=== PATIENT | male | born 1960 | race Caucasian/White ===

== ENCOUNTER 2024-10-01 00:11 | Emergency (ER) | payer MEDICARE ==
[2024-10-01 00:25] LABS: Hematocrit 38.6 % (40.1-51.0); Hemoglobin 12.5 g/dL (13.7-17.5); Mean Cell Volume 91.5 fL (79.0-92.2); Mean Corpuscular Hemoglobin 29.6 pg (25.7-32.2); Mean Corpuscular Hgb Concent. 32.4 g/dL (32.3-36.5); Mean Platelet Volume 9.7 fL (9.4-12.4); Platelet Count 485 x10^3/uL (163-337); Red Blood Count 4.22 x10^6/uL (4.63-6.08); White Blood Count 9.9 x10^3/uL (4.23-9.07)
--- NOTE | 2024-10-01 00:35 | XRAY ---
CLINICAL HISTORY: acute mental status change COMPARISON: None. TECHNIQUE: Multiple axial images are obtained from the skull base to the vertex without contrast. CT scan was performed according to ALARA (as low as reasonable achievable). FINDINGS: There is cerebral atrophy. No evidence of space occupying lesion, hemorrhage, edema, mass effect, midline shift, extra axial collection, or hydrocephalus is noted. Basal cisterns are symmetric and normal in size and configuration. There are scattered periventricular hypodensities as can be seen with chronic microvascular ischemic changes. The rousseau-white matter differentiation is preserved. Bilateral ethmoid and left maxillary sinusitis. Rest of paranasal sinuses and mastoid air cells are well aerated. Orbital contents are within normal limits. Bony structures are intact. Small subgaleal lipoma is noted involving left frontal region. IMPRESSION: 1. No evidence of acute intracranial abnormality is demonstrated. 2. Chronic microvascular ischemic changes. 3. Cerebral atrophy. Electronically Signed by: Xander Oliva MD. (10/01/2024 00:32:09 EDT)
[2024-10-01 00:44] LABS: BILIRUBIN,TOTAL 0.5 mg/dL (0.2-1.3); Calcium 10.3 mg/dL (8.4-10.2); Creatinine 1 1.29 mg/dL (0.66-1.25); EST GLOMERULAR FILTRATION RATE 61.5 ML/MIN; MAGNESIUM 1.5 mg/dL (1.6-2.3); Potassium 3.9 mmol/L (3.5-5.1); Total Protein 7.4 g/dL (6.3-8.2)
[2024-10-01 00:48] LABS: INR 1.01 (0.8-3.0); PTT 24.1 SECONDS (25.1-36.5)
[2024-10-01 00:53] LABS: Appearance Clear (Clear); Bacteria None Seen /HPF (None Seen); Bilirubin Negative (Negative); Blood Negative (Negative); Epithelial Cells None Seen /HPF (None Seen); Glucose, Urine Negative (Negative); Hyaline Casts NONE SEEN /LPF (0-2); Ketones Negative (Negative); Leukocyte Esterase Negative (Negative); Nitrite Negative (Negative); Ph 6.5 (4.6-8.0); Protein,Urine Dip Trace (Negative); RBC 0-2 /HPF (0-5); Specific Gravity <=1.005 (1.005-1.030); Urobilinogen 0.2 mg/dL (0.2); WBC 0-2 /HPF (0-5)
[2024-10-01 00:55] LABS: Eosinophil 3 % (0.8-7.0); Lymphocytes 58 % (21.8-53.1); Monocyte 9 % (5.3-12.2); Neutrophils 30 % (34.0-67.9); Total Cells Counted 100
[2024-10-01 00:57] LABS: Platelet Estimate INCREASED (NORMAL)
[2024-10-01 00:59] LABS: VBG BASE EXCESS -11.7 (-2.0-2.0); VBG CARBOXYHEMOGLOBIN 3.1 % T HGB (0.0-6.9); VBG HEMOGLOBIN 13.5; VBG pH 7.19 (7.32-7.42)
[2024-10-01] MEDS ORDERED: Sodium Chloride 0.9% 1000 ML 1,000 ML ONE ×2 (01:02→01:09)
[2024-10-01] MEDS: Sodium Chloride 0.9% 1000 ML 1,000 ML IV STA ×2 (01:04→02:55)
--- NOTE | 2024-10-01 02:06 | ERPHSYRPT ---
- History of Present Illness Source: family, EMS Exam Limitations: no limitations Patient Subjective Stated Complaint: patient spouse found him seizing in bed Triage Nursing Assessment: patient is able to open eyes at this time, has petechiaye around both eyes and a cyst on head Physician History: According to the they both went to bed his last seen normal was around 1030. She was in the other room and heard him yell. It was unintelligible. She said that when she came in she found him laying in the bed having what is described like seizure activity. She said it lasted about a minute. It then stopped. She said that the patient turned blue and was frothing from the mouth. She called 911 and continue to monitor him. EMS arrived shortly thereafter and picked him up. They loaded him in the truck and they said that he had another seizure on the way in. He does not have a seizure disorder. There is been no acute changes in lifestyle or medications. He has been sleeping fine he has not ingested any alcohol or toxins. They have just been having a normal night and then this happened. Patient was not responsive when he got here and was unable to give me any history. Hx Tetanus, Diphtheria Vaccination/Date Given: Yes Hx Influenza Vaccination/Date Given: No Hx Pneumococcal Vaccination/Date Given: No Immunizations Up to Date: Yes Travel Risk - International Travel Have you traveled outside of the country in past 3 weeks: No - Emerging Infectious Disease Are you exhibiting symptoms associated with any current EIDs: No - Review of Systems All Other Systems: Unable due to condition - Past Medical History Pertinent Past Medical History: Yes Cardiac History: Hypertension Endocrine Medical History: Diabetes Type II Musculoskeletal History: No Pertinent History GI Medical History: No Pertinent History History: No Pertinent History Psycho-Social History: No Pertinent History 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 - Past Surgical History Past Surgical History: Yes Cardiac: Cardiac Stent - Social History Smoking Status: Never smoker Drug Use: none - Social Determinants of Health Will the patient participate in the screening: Declined to provide - Nursing Vital Signs Nursing Vital Signs: Initial Vital Signs Pulse Rate 98 H 10/01/24 00:11 Respiratory Rate 21 10/01/24 00:11 Blood Pressure 165/79 10/01/24 00:11 O2 Sat by Pulse Oximetry 98 10/01/24 00:11 Pain Scale Pain Intensity 0 - Physical Exam General Appearance: no apparent distress Eye Exam: other (His eyes did not open spontaneously at first but they did later. The pupils are equal round reactive to light. He would track movements.) Ears, Nose, Throat Exam: normal ENT inspection, TMs normal Neck Exam: normal inspection, non-tender, supple Respiratory Exam: normal breath sounds, lungs clear, No chest tenderness, No respiratory distress Cardiovascular Exam: regular rate/rhythm, normal heart sounds Gastrointestinal/Abdomen Exam: soft, normal bowel sounds, No tenderness Male Genitalia Exam: penile discharge Back Exam: normal inspection Neurologic Exam: other (The patient's GCS wasAbout 5. But he was maintaining his airway.) Skin Exam: normal color SpO2: 98 O2 Delivery: Nasal Cannula - Course Nursing assessment & vital signs reviewed: Yes EKG Interpreted by Me: RATE, NORMAL AXIS, NORMAL INTERVALS, NORMAL QRS, NORMAL ST-T Ordered Tests: Active Orders 24 hr Category Date Time Status EKG-ER Only STAT Care 10/01/24 00:[address] ANGIOGRAPHY NECK [CT] Stat Exams 10/01/24 02:06 Completed CTA HEAD W AND/OR WO CONTRAST [CT] Stat Exams 10/01/24 02:06 Completed HEAD WITHOUT CONTRAST [CT] Stat Exams 10/01/24 00:15 Completed ARTERIAL BLOOD GASES Stat Lab 10/01/24 00:15 Ordered BMP Stat Lab 10/01/24 02:25 Completed CBC W DIFF Stat Lab 10/01/24 00:12 Completed CMP Stat Lab 10/01/24 00:12 Completed CULTURE,URINE Stat Lab 10/01/24 00:40 Received D-DIMER QUANTITATIVE Stat Lab 10/01/24 00:12 Completed Lactic Acid Stat Lab 10/01/24 00:16 Ordered Lactic Acid Stat Lab 10/01/24 00:54 Completed Lactic Acid Stat Lab 10/01/24 02:25 Completed MAGNESIUM Stat Lab 10/01/24 00:12 Completed Manual Differential NC Stat Lab 10/01/24 00:12 Completed PROTIME WITH INR Stat Lab 10/01/24 00:12 Completed PTT Stat Lab 10/01/24 00:12 Completed TROPONIN Q4H Lab 10/01/24 00:12 Completed TROPONIN Q4H Lab 10/01/24 02:40 Completed TROPONIN Q4H Lab 10/01/24 08:30 Ordered UA W/RFX UR CULTURE Stat Lab 10/01/24 00:40 Completed VBG [VENOUS BLOOD GAS] Stat Lab 10/01/24 00:54 Completed VENOUS BLOOD GAS Stat Lab 10/01/24 02:25 Completed Medication Summary Generic Name Dose Route Start Last Admin Trade Name Luda PRN Reason Stop Dose Admin Levetiracetam 2,000 mg/ 120 mls @ 220 mls/hr 10/01/24 05:30 Dextrose IV 10/01/24 06:02 STAT ONE Discontinued Medications Generic Name Dose Route Start Last Admin Trade Name Luda PRN Reason Stop Dose Admin Sodium Chloride 1,000 mls @ 999 mls/hr 10/01/24 01:01 10/01/24 02:55 Sodium Chloride 0.9% 1000 Ml IV 10/01/24 02:01 Infused .Q1H1M STA Infusion Sodium Chloride Confirm 10/01/24 01:02 Sodium Chloride 0.9% 1000 Ml Administered 10/01/24 01:03 Dose 1,000 mls @ ud .ROUTE .STK-MED ONE Sodium Chloride Confirm 10/01/24 01:09 Sodium Chloride 0.9% 1000 Ml Administered 10/01/24 01:10 Dose 1,000 mls @ ud .ROUTE .STK-MED ONE Sodium Chloride 1,000 mls @ 999 mls/hr 10/01/24 02:12 10/01/24 03:52 Sodium Chloride 0.9% 1000 Ml IV 10/01/24 03:12 Infused .Q1H1M STA Infusion Lab/Rad Data: Laboratory Result Diagrams 10/01/24 00:12 10/01/24 02:25 Laboratory Results 10/01/24 10/01/24 10/01/24 Range/Units 02:40 02:25 02:25 WBC (4.23-9.07) x10^3/uL RBC (4.63-6.08) x10^6/uL Hgb (13.7-17.5) g/dL Hct (40.1-51.0) % MCV (79.0-92.2) fL MCH (25.7-32.2) pg MCHC (32.3-36.5) g/dL RDW (11.6-14.4) % Plt Count (163-337) x10^3/uL MPV (9.4-12.4) fL Segmented Neutrophils (34.0-67.9) % Lymphocytes (Manual) (21.8-53.1) % Monocytes (Manual) (5.3-12.2) % Eosinophils (Manual) (0.8-7.0) % Platelet Estimate (NORMAL) RBC Morphology PT (9.4-12.5) SECONDS INR (0.8-3.0) APTT (25.1-36.5) SECONDS D-Dimer (0.0-0.50) mg/L pO2/FiO2 Ratio 100.0 % VBG pH 7.34 (7.32-7.42) VBG pCO2 at Pat Temp 40 L (42-55) mm/Hg VBG pO2 at Pat Temp 53 H (25-40) mm/Hg VBG HCO3 21.6 L (22-28) meq/L VBG O2 Sat (Monalisa) 85.2 L (95-100) VBG Base Excess -3.9 L (-2.0-2.0) VBG Hemoglobin 13.4 VBG Carboxyhemoglobin 5.5 (0.0-6.9) % T HGB POC Potassium 4.4 (3.5-5.1) Sodium 137 (135-145) mmol/L Potassium 4.3 (3.5-5.1) mmol/L Chloride 102 (98-107) mmol/L Carbon Dioxide 18 L (22-30) mmol/L Anion Gap 21.9 H (5-15) MEQ/L BUN 22 H (9-20) mg/dL Creatinine 1.12 (0.66-1.25) mg/dL Estimated GFR 72.9 ML/MIN Glucose 139 H (74-106) mg/dL Lactic Acid 5.1 H (0.4-2.0) Calcium 9.4 (8.4-10.2) mg/dL Magnesium (1.6-2.3) mg/dL Total Bilirubin (0.2-1.3) mg/dL AST (17-59) U/L ALT (0-50) U/L Alkaline Phosphatase (38-126) U/L Troponin I 0.016 (0.000-0.033) ng/mL Serum Total Protein (6.3-8.2) g/dL Albumin (3.5-5.0) g/dL Urine Color (Yellow) Urine Appearance (Clear) Urine pH (4.6-8.0) Ur Specific [place] (1.005-1.030) Urine Protein (Negative) Urine Glucose (UA) (Negative) mg/dL Urine Ketones (Negative) Urine Blood (Negative) Urine Nitrite (Negative) Urine Bilirubin (Negative) Urine Urobilinogen (0.2) mg/dL Ur Leukocyte Esterase (Negative) U Hyaline Cast (Auto) (0-2) /LPF Urine Microscopic RBC (0-5) /HPF Urine Microscopic WBC (0-5) /HPF Ur Epithelial Cells (None Seen) /HPF Urine Bacteria (None Seen) /HPF Urine Culture Reflexed (NO) 10/01/24 10/01/24 10/01/24 Range/Units 00:54 00:54 00:40 WBC (4.23-9.07) x10^3/uL RBC (4.63-6.08) x10^6/uL Hgb (13.7-17.5) g/dL Hct (40.1-51.0) % MCV (79.0-92.2) fL MCH (25.7-32.2) pg MCHC (32.3-36.5) g/dL RDW (11.6-14.4) % Plt Count (163-337) x10^3/uL MPV (9.4-12.4) fL Segmented Neutrophils (34.0-67.9) % Lymphocytes (Manual) (21.8-53.1) % Monocytes (Manual) (5.3-12.2) % Eosinophils (Manual) (0.8-7.0) % Platelet Estimate (NORMAL) RBC Morphology PT (9.4-12.5) SECONDS INR (0.8-3.0) APTT (25.1-36.5) SECONDS D-Dimer (0.0-0.50) mg/L pO2/FiO2 Ratio 100.0 % VBG pH 7.19 L* (7.32-7.42) VBG pCO2 at Pat Temp 42 (42-55) mm/Hg VBG pO2 at Pat Temp 180 H (25-40) mm/Hg VBG HCO3 16.0 L* (22-28) meq/L VBG O2 Sat (Monalisa) 99.0 (95-100) VBG Base Excess -11.7 L (-2.0-2.0) VBG Hemoglobin 13.5 VBG Carboxyhemoglobin 3.1 (0.0-6.9) % T HGB POC Potassium 4.0 (3.5-5.1) Sodium (135-145) mmol/L Potassium (3.5-5.1) mmol/L Chloride (98-107) mmol/L Carbon Dioxide (22-30) mmol/L Anion Gap (5-15) MEQ/L BUN (9-20) mg/dL Creatinine (0.66-1.25) mg/dL Estimated GFR ML/MIN Glucose (74-106) mg/dL Lactic Acid 11.6 H (0.4-2.0) Calcium (8.4-10.2) mg/dL Magnesium (1.6-2.3) mg/dL Total Bilirubin (0.2-1.3) mg/dL AST (17-59) U/L ALT (0-50) U/L Alkaline Phosphatase (38-126) U/L Troponin I (0.000-0.033) ng/mL Serum Total Protein (6.3-8.2) g/dL Albumin (3.5-5.0) g/dL Urine Color Yellow (Yellow) Urine Appearance Clear (Clear) Urine pH 6.5 (4.6-8.0) Ur Specific [place] <=1.005 (1.005-1.030) Urine Protein Trace A (Negative) Urine Glucose (UA) Negative (Negative) mg/dL Urine Ketones Negative (Negative) Urine Blood Negative (Negative) Urine Nitrite Negative (Negative) Urine Bilirubin Negative (Negative) Urine Urobilinogen 0.2 (0.2) mg/dL Ur Leukocyte Esterase Negative (Negative) U Hyaline Cast (Auto) NONE SEEN (0-2) /LPF Urine Microscopic RBC 0-2 (0-5) /HPF Urine Microscopic WBC 0-2 (0-5) /HPF Ur Epithelial Cells None Seen (None Seen) /HPF Urine Bacteria None Seen (None Seen) /HPF Urine Culture Reflexed YES (NO) 10/01/24 10/01/24 10/01/24 Range/Units 00:12 00:12 00:12 WBC (4.23-9.07) x10^3/uL RBC (4.63-6.08) x10^6/uL Hgb (13.7-17.5) g/dL Hct (40.1-51.0) % MCV (79.0-92.2) fL MCH (25.7-32.2) pg MCHC (32.3-36.5) g/dL RDW (11.6-14.4) % Plt Count (163-337) x10^3/uL MPV (9.4-12.4) fL Segmented Neutrophils (34.0-67.9) % Lymphocytes (Manual) (21.8-53.1) % Monocytes (Manual) (5.3-12.2) % Eosinophils (Manual) (0.8-7.0) % Platelet Estimate (NORMAL) RBC Morphology PT 11.0 (9.4-12.5) SECONDS INR 1.01 (0.8-3.0) APTT 24.1 L (25.1-36.5) SECONDS D-Dimer 0.22 (0.0-0.50) mg/L pO2/FiO2 Ratio % VBG pH (7.32-7.42) VBG pCO2 at Pat Temp (42-55) mm/Hg VBG pO2 at Pat Temp (25-40) mm/Hg VBG HCO3 (22-28) meq/L VBG O2 Sat (Monalisa) (95-100) VBG Base Excess (-2.0-2.0) VBG Hemoglobin VBG Carboxyhemoglobin (0.0-6.9) % T HGB POC Potassium (3.5-5.1) Sodium 138 (135-145) mmol/L Potassium 3.9 (3.5-5.1) mmol/L Chloride 100 (98-107) mmol/L Carbon Dioxide 13 L* (22-30) mmol/L Anion Gap 30.0 H (5-15) MEQ/L BUN 20 (9-20) mg/dL Creatinine 1.29 H (0.66-1.25) mg/dL Estimated GFR 61.5 ML/MIN Glucose 191 H (74-106) mg/dL Lactic Acid (0.4-2.0) Calcium 10.3 H (8.4-10.2) mg/dL Magnesium 1.5 L (1.6-2.3) mg/dL Total Bilirubin 0.50 (0.2-1.3) mg/dL AST 35 (17-59) U/L ALT 32 (0-50) U/L Alkaline Phosphatase 43 (38-126) U/L Troponin I < 0.012 (0.000-0.033) ng/mL Serum Total Protein 7.4 (6.3-8.2) g/dL Albumin 5.0 (3.5-5.0) g/dL Urine Color (Yellow) Urine Appearance (Clear) Urine pH (4.6-8.0) Ur Specific [place] (1.005-1.030) Urine Protein (Negative) Urine Glucose (UA) (Negative) mg/dL Urine Ketones (Negative) Urine Blood (Negative) Urine Nitrite (Negative) Urine Bilirubin (Negative) Urine Urobilinogen (0.2) mg/dL Ur Leukocyte Esterase (Negative) U Hyaline Cast (Auto) (0-2) /LPF Urine Microscopic RBC (0-5) /HPF Urine Microscopic WBC (0-5) /HPF Ur Epithelial Cells (None Seen) /HPF Urine Bacteria (None Seen) /HPF Urine Culture Reflexed (NO) 10/01/24 Range/Units 00:12 WBC 9.9 H (4.23-9.07) x10^3/uL RBC 4.22 L (4.63-6.08) x10^6/uL Hgb 12.5 L (13.7-17.5) g/dL Hct 38.6 L (40.1-51.0) % MCV 91.5 (79.0-92.2) fL MCH 29.6 (25.7-32.2) pg MCHC 32.4 (32.3-36.5) g/dL RDW 13.0 (11.6-14.4) % Plt Count 485 H (163-337) x10^3/uL MPV 9.7 (9.4-12.4) fL Segmented Neutrophils 30 L (34.0-67.9) % Lymphocytes (Manual) 58 H (21.8-53.1) % Monocytes (Manual) 9 (5.3-12.2) % Eosinophils (Manual) 3 (0.8-7.0) % Platelet Estimate INCREASED (NORMAL) RBC Morphology NORMAL PT (9.4-12.5) SECONDS INR (0.8-3.0) APTT (25.1-36.5) SECONDS D-Dimer (0.0-0.50) mg/L pO2/FiO2 Ratio % VBG pH (7.32-7.42) VBG pCO2 at Pat Temp (42-55) mm/Hg VBG pO2 at Pat Temp (25-40) mm/Hg VBG HCO3 (22-28) meq/L VBG O2 Sat (Monalisa) (95-100) VBG Base Excess (-2.0-2.0) VBG Hemoglobin VBG Carboxyhemoglobin (0.0-6.9) % T HGB POC Potassium (3.5-5.1) Sodium (135-145) mmol/L Potassium (3.5-5.1) mmol/L Chloride (98-107) mmol/L Carbon Dioxide (22-30) mmol/L Anion Gap (5-15) MEQ/L BUN (9-20) mg/dL Creatinine (0.66-1.25) mg/dL Estimated GFR ML/MIN Glucose (74-106) mg/dL Lactic Acid (0.4-2.0) Calcium (8.4-10.2) mg/dL Magnesium (1.6-2.3) mg/dL Total Bilirubin (0.2-1.3) mg/dL AST (17-59) U/L ALT (0-50) U/L Alkaline Phosphatase (38-126) U/L Troponin I (0.000-0.033) ng/mL Serum Total Protein (6.3-8.2) g/dL Albumin (3.5-5.0) g/dL Urine Color (Yellow) Urine Appearance (Clear) Urine pH (4.6-8.0) Ur Specific [place] (1.005-1.030) Urine Protein (Negative) Urine Glucose (UA) (Negative) mg/dL Urine Ketones (Negative) Urine Blood (Negative) Urine Nitrite (Negative) Urine Bilirubin (Negative) Urine Urobilinogen (0.2) mg/dL Ur Leukocyte Esterase (Negative) U Hyaline Cast (Auto) (0-2) /LPF Urine Microscopic RBC (0-5) /HPF Urine Microscopic WBC (0-5) /HPF Ur Epithelial Cells (None Seen) /HPF Urine Bacteria (None Seen) /HPF Urine Culture Reflexed (NO) - Progress Progress: improved Progress Note: Patient slowly moved and improved. He started doing some spontaneous movements. It wasNot anywhere near his baseline. He would respond to painful stimuli by retracting a bit.Patient finally became not postictal. This is after about 4 to 5 hours. We decided to go ahead and get a neurology consult. They agreed that it was a seizure. They recommended 2 g of Keppra loading dose here and then 500 mg twice daily. They also suggested a neurology referral. They left a note just please see that.All the recommendations are in there.The patient was back to baseline and is stable for discharge.CTs of his head was done plain. It did not show any findings. CTAs of the brain and neck showed no acute findings.He had a very high lactic acid which went down with IV fluids.It went from 11-5 after 1 L and we ran another liter. 10/01/24 02:05 10/01/24 05:33 Medical Desision Making - Independent Historian Additional History obtained from: Spouse - Discussion of managment Care discussed with:: specialist (Teleneuro) Reviewed:: Test results, Need for additional workup Agreed on:: Treatment plan, need for follow-up - Risk of complications Low Risk: Low risk of morbidity from additional dx testing or treatment - Departure Departure Disposition: Home Clinical Impression: New onset seizure Condition: Stable Critical Care Time: No Referrals: CECILLE THAKUR NP [Primary Care Provider, [facility]] - Follow up/PCP as directed Prescriptions: Levetiracetam [Keppra] 500 mg PO BID #60 tablet
[2024-10-01 02:34] LABS: Lactic Acid 5.1 (0.4-2.0); VBG BASE EXCESS -3.9 (-2.0-2.0); VBG CARBOXYHEMOGLOBIN 5.5 % T HGB (0.0-6.9); VBG HCO3- 21.6 meq/L (22-28); VBG HEMOGLOBIN 13.4; VBG O2 SATURATION 85.2 (95-100); VBG POTASSIUM 4.4 (3.5-5.1); VBG pH 7.34 (7.32-7.42)
[2024-10-01 02:50] LABS: ANION GAP 21.9 MEQ/L (5-15); Calcium 9.4 mg/dL (8.4-10.2); Creatinine 1 1.12 mg/dL (0.66-1.25); EST GLOMERULAR FILTRATION RATE 72.9 ML/MIN
[2024-10-01 02:52] LABS: Potassium 4.3 mmol/L (3.5-5.1)
[2024-10-01 02:57] VITALS: TEMP 97.2
--- NOTE | 2024-10-01 04:13 | XRAY ---
CLINICAL HISTORY: cva COMPARISON: None. TECHNIQUE: Contrast enhanced thin slice CT angiography scan of the carotid vessels was performed with intravenous contrast. Angiographic images were processed, 3D MIP images were acquired for interpretation.Contiguous axial images were obtained. Reformatted coronal and sagittal images were also reviewed. If IV contrast material had not been administered, the likelihood of detecting abnormalities relevant to the patients condition would have been substantially decreased. CT scan was performed according to ALARA (as low as reasonable achievable). FINDINGS: Included great vessels of the aortic arch are grossly unremarkable. Atherosclerotic changes with tiny eccentric calcified plaques noted in visualized aortic arch. Evidence of atherosclerotic changes with eccentric calcified plaques are noted involving bilateral carotid bulbs and origin and proximal part of C1 segments of bilateral internal carotid arteries with ~20-30% stenosis on left side and ~30 to 40% stenosis on right side. Rest of the common carotid artery, internal carotid artery , and origin of the external carotid artery are well opacified. Vertebral arteries are well opacified. Right vertebral artery is small in caliber compared to left side. Jugular veins are well opacified. Included lung apices are grossly unremarkable. Thyroid gland appears unremarkable. Subpleural atelectasis are noted involving visualized bilateral upper lobes. IMPRESSION: 1. Evidence of atherosclerotic changes with eccentric calcified plaques are noted involving bilateral carotid bulbs and origin and proximal part of C1 segments of bilateral internal carotid arteries with ~20-30% stenosis on left side and ~30 to 40% stenosis on right side. Electronically Signed by: Xander Oliva MD. (10/01/2024 04:10:34 EDT)
--- NOTE | 2024-10-01 04:39 | XRAY ---
CLINICAL HISTORY: cva COMPARISON: none. TECHNIQUE: Contrast enhanced thin slice CT angiography scan of the cerebral vessels was performed with intravenous contrast. Angiographic images were processed, 3D MIP images were acquired for interpretation. Contiguous axial images were obtained. Reformatted coronal and sagittal images were also reviewed. If IV contrast material had not been administered, the likelihood of detecting abnormalities relevant to the patients condition would have been substantially decreased. CT scan was performed according to ALARA (as low as reasonable achievable). FINDINGS: Bilateral internal carotid arteries show normal course, calibre and opacification in the canalicular and cavernous part. Their division into the anterior cerebral artery and middle cerebral artery is defined. A1, A2 and M1, M2 segments are normal on both the sides. Bilateral vertebral arteries are seen to unite the form the basilar artery. Right vertebral artery is hypoplastic. Basilar artery shows normal course, caliber and opacification. Its division into the posterior cerebral arteries is defined. Bilateral P1 and P2 segments are normal. Visualized venous structures show normal opacification. No evidence of intracranial aneurysm or AV malformation is seen. Changes of left sided ethmoidal and maxillary sinusitis noted. Left sided frontal scalp lipoma seen. IMPRESSION: 1. No evidence of stenosis or aneurysm. No evidence of dissection. 2. Right vertebral artery is hypoplastic. However, appears patent. 3. Focal mild calcified atheromatous plaques sen along cavernous segments of blateral internal carotic arteries without significant luminl narrowing. Electronically Signed by: Xander Oliva MD. (10/01/2024 04:35:49 EDT)
--- NOTE | 2024-10-01 05:37 | PCM.CONS ---
History of Present Illness - Neuro Consultation Date of Consultation Date: 10/01/24 ED Arrival Date & Time: 10/01/24 00:11 Providers: Attending Provider: ED Provider: ROSEMARY BARTHOLOMEW MD Consulting Provider: GABRIELLE MÉNDEZ MD cc:: The requesting physician will be sent a copy of the consult. - History of Present Illness HPI: Physician Signature This document was electronically signed by: Gabrielle Méndez MD 10/01/2024 05:36 AM Consult Cover Page FROM: [facility], Call Back Number: [phone] SUBJECT: Consult Recommendations Date and Time of Report: 10/01/2024 05:36 AM ET Items Contained in this Document: Neurology Consult Note Consult Information Member Facility: [facility] Facility Consult ID: [id number] Facility Time Zone: ET Date and Time of Request: 10-01-2024 04:30 AM ET Requesting Clinician: DR. BARTHOLOMEW Patient Name: Kristian Reinoso Date of : 1960 Gender: Male Patient identity was confirmed at the beginning of the consult with the patient/family/staff using two personal identifiers: Patient name and Teleneurology Oyster Harvester: Gabrielle Méndez MD Reason for Consult Reason for Consult: ED Non-Emergency General Chief Complaint: seizures Patient Location and Admission Status: ED- Patient is not admitted Family Members and Medical Staff Present During Exam: RN, patient's History of Present Illness: Mr. Reinoso is a 64 yo M w/pmhx of CAD s/p cardiac stent in 2017, DM, HTN who presents due to c/f seizures. His is at bedside and provides a significant amount of the history. At around 11 PM, the patient was sleeping but suddenly let out an incomprehensible vocalization followed by full body jerking. He was faced down in the pillow and his turned him over. He was reportedly blue, foaming at the mouth and did about 5-6 chest compressions because she did not feel a pulse. When she started chest compressions, he suddenly gasped but did not open his eyes and was making snoring noises. Upon arrival of EMS to the scene, he was found to be in normal sinus rhythm and there were no signs that patient had suffered a cardiac arrest. He reportedly had another seizure on the way to the hospital that required bagging the patient when seizure resolved.No details regarding what the seizure en route looked like. He was reportedly very post ictal when he arrived to the ED and he is currently confused and does not recall details about what brought him to the hospital. +tongue biting. No history of seizures in the past. No history of TBI or concussions, no history of meningitis or febrile seizures as a child. No ingestion of substances. He denies any B symptoms. Has not been ill recently and has been in his usual state of health without any medication changes recently. Number of Documented HPI Elements: 4+ Medical History Other Medical History: as noted in HPI Past Procedures: Cardiac Stents Pertinent Family History: Non contributory Allergies Other Allergies: darvocet Medications Anti-Coagulants: None Anti-Platelets: Plavix (Clopidogrel) Other Medications: lisinopril manjaro metformin naproxen PRN zoloft 100 mg daily Social History Alcohol Use: None Illicit Drug Use: None Tobacco Use: None Vital Signs Temperature: Afebrile Blood Pressure (mmHg): 145/66 Heart Rate (bpm): 77 O2 Sat (%): 93 POC Glucose(mg/dL): 154 Date and Time: 10/01/2024 04:56:00 AM ET Review Of Systems General, Constitutional: All Negative Neurological: All Negative Psychiatric: All Negative Cardiovascular: All Negative Ears, Nose, Throat: All Negative Respiratory: All Negative Gastrointestinal: All Negative Genitourinary: All Negative Musculoskeletal: All Negative Endocrine: All Negative Hematologic, Lymphatic: All Negative Integumentary: All Negative Ophthalmology: All Negative Allergy, Immunology: All Negative Exam Exam: PHYSICAL EXAMINATION EXAM: Constitutional: appearance normally developed Face: normocephalic and atraumatic Eyes: normal lids, normal conjunctiva Neck: supple Respiratory: normal effort Abdomen: non distended Skin: no rashes, lesions, or ulcers noted Psychiatric: normal mood and normal affect NEUROLOGIC EXAMINATION: Appearance: no acute distress Orientation: awake, alert and oriented x 3. Mental Status: alert, slower to respond Attention: normal Knowledge: does not recall events leading up to admission but otherwise answering questions appropriately Language: no aphasia Speech: no dysarthria Cranial Nerves: CN 2 - no visual defect on confrontation and pupils round, equal CN 3, 4, 6 - extra-ocular movements intact CN 5 - facial sensation intact CN 7 - no facial asymmetry CN 8 - intact hearing CN 9, 10 - palate symmetric. +tongue bite CN 12 - tongue midline Motor: no drift of any extremities. reports chronic weakness in LLE due to chronic knee issues Gait: deferred Coordination: no ataxia with finger to nose testing Sensory: intact and symmetric to light touch Clinician assisting with exam: RN Labs and Imaging Labs available?: Yes WBC (mcL): 9.9 HGB (g/dL): 12.5 PLT (mcL): 485 Na (mEq/L): 138 K (mEq/L): 3.9 Cr (mg/dL): 1.29 Other Labs: lactic acid 11.6 CT Brain Findings: No acute changes Other CT Findings : CTA H/N-bl carotid plaques measuring <40% stenosis, no other abnormalities MRI Brain Findings: Not Applicable Assessment and Recommendations Assessment: Mr. Reinoso is a 64 yo M w/pmhx of CAD s/p cardiac stent in 2017, DM, HTN who presents with new onset seizure x2. Patient reportedly had what was described as an ictal cry followed by whole body jerking, foaming at the mouth and AMS out of sleep. He reportedly suffered another seizure en route to the hospital with limited details surrounding what that looked like. Upon arrival to the ED, he was confused with a lactic acidosis, TYRON, leukocytosis and +tongue biting with no recollection of details leading to his admission. He denies any risk factors for seizures and denies any ingestion of substances, changes in medications or seizure inducing medications. He has been in his normal state of health leading up to this. His presentation is very suspicious for unprovoked seizures. CTH, CTA H/N completed showing no acute abnormalities. Recommendations: Recommend loading patient with 2 g keppra x1 given back to back seizures. Recommend starting patient on keppra 500 mg bid Recommend obtaining MRIB (can be done as an outpatient) Recommend obtaining rEEG as an outpatient Patient reports he drives and I discussed with Dr. Bartholomew that his license will have to be reported to the DMV and patient will have to be updated regarding driving restrictions until he is seizure free Recommend OP neurology follow up Recommend correction of metabolic derangements as per primary team Currently patient is AOx3, awake and alert with slower responses but otherwise has no deficits. If his exam worsens, MS declines or is found to have repeat seizures without return to baseline, can consider placing on cEEG. Counseled patient on seizure precautions: Caution with using heat/fire: examples: cooking (use the back burners and turn in the handles of pots and pans so they don't stick out over the edge of the cooktop), microwave (hu are possible from the steam), irons, curling irons * Avoid climbing ladders, working at heights * Caution with sports - discuss specific sports questions with your doctor * Avoid using heavy automated machinery * Water - drowning is a risk for people with epilepsy. Showers are safer than baths. Swim only with someone else who is aware of your seizures and is a strong enough swimmer to help you out of the water if you were to have a seizure. * Generally unsafe sports: scuba diving, isela diving Thank you for allowing us to participate in this patient's care. Please call [facility] with questions, concerns of change in the patient's neurological condition. This consult was done via secure telemedicine audio/visual platform. Patient identity verified and consent was obtained. Staff that participated with the visit included: RN Synchronous Audio-Visual Visit: Patient Consent Obtained?This visit was performed using real-time audio and video connection between my location and the patients location with the assistance of a surrogate at the patients location. Written or verbal consent was obtained from the patient/guardian to perform this visit using synchronous telemedicine technology. Any patient questions regarding the telemedicine interaction were answered. Disposition: Medical work up and admit/discharge per referring provider Miscellaneous Patient identity was confirmed at the beginning of the consult with the patient/family/staff using two personal identifiers: Patient name and Diagnosis Impression: Other Diagnosis Other: seizure Case discussed with: Dr. Bartholomew ICD-10 Code ICD-10 Code (Primary): G40.89 : Other seizures ICD-10 Code: E11.9 : Type 2 diabetes mellitus without complications ICD-10 Code: I25.10 : Atherosclerotic heart disease of [place] coronary artery without angina pectoris Attestation Interaction Mode: Video & Phone Time of Phone Call : 10-01-2024 05:22 AM ET Time of Video Call : 10-01-2024 04:45 AM ET Interaction Attestation: Clinical telemedicine services delivered using HIPAA- compliant interactive video-audio telecommunications while the patient and the rendering provider were not in the same physical location. Written report was provided to the requesting provider. Torres Timer Summary ED Arrival Date and Time: 10-01-2024 04:30 AM ET Date and Time of Request: 10-01-2024 04:30 AM ET Physician Signature This document was electronically signed by: Gabrielle Méndez MD 10/01/2024 05:36 AM Review of Systems - Review of Systems Review of Systems (Narrative): Pertinent positive and negative findings as per HPI. All other systems negative. 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 - Past Surgical History Past Surgical History: Yes Cardiac History: Cardiac Stent - Social History Smoking Status: Never smoker Alcohol: None Drug Use: none - Social Determinants of Health Will the patient participate in the screening: Declined to provide Physical Exam - Vital Signs Vital Signs: Vital Signs - 24 hr 10/01/24 10/01/24 10/01/24 00:11 00:12 00:31 Temperature Pulse Rate 98 H 93 H Respiratory 21 18 24 Rate Blood Pressure 165/79 215/101 Blood Pressure 180/90 [Left Arm] O2 Sat by Pulse 98 94 L 100 Oximetry 10/01/24 10/01/24 10/01/24 00:37 01:00 01:12 Temperature 96.4 F Pulse Rate 96 H Respiratory 26 H 20 Rate Blood Pressure 180/90 155/77 Blood Pressure 128/74 [Left Arm] O2 Sat by Pulse 98 Oximetry 10/01/24 10/01/24 10/01/24 01:30 02:00 02:45 Temperature 97.2 F Pulse Rate 76 77 Respiratory 14 18 Rate Blood Pressure 128/74 138/69 159/72 Blood Pressure 159/72 [Left Arm] O2 Sat by Pulse 91 L Oximetry 10/01/24 10/01/24 03:00 05:36 Temperature Pulse Rate 80 Respiratory 16 Rate Blood Pressure 151/76 Blood Pressure [Left Arm] O2 Sat by Pulse 31 L 98 Oximetry - NIHSS Stroke Scale Date Completed: 10/01/24 Time Stroke Scale Completed: 01:07 Results - Labs Lab/Micro Results: Lab Results-Last 24 Hours 10/01/24 10/01/24 10/01/24 Range/Units 00:12 00:12 00:12 WBC 9.9 H (4.23-9.07) x10^3/uL RBC 4.22 L (4.63-6.08) x10^6/uL Hgb 12.5 L (13.7-17.5) g/dL Hct 38.6 L (40.1-51.0) % MCV 91.5 (79.0-92.2) fL MCH 29.6 (25.7-32.2) pg MCHC 32.4 (32.3-36.5) g/dL RDW 13.0 (11.6-14.4) % Plt Count 485 H (163-337) x10^3/uL MPV 9.7 (9.4-12.4) fL Segmented Neutrophils 30 L (34.0-67.9) % Lymphocytes (Manual) 58 H (21.8-53.1) % Monocytes (Manual) 9 (5.3-12.2) % Eosinophils (Manual) 3 (0.8-7.0) % Platelet Estimate INCREASED (NORMAL) RBC Morphology NORMAL PT 11.0 (9.4-12.5) SECONDS INR 1.01 (0.8-3.0) APTT 24.1 L (25.1-36.5) SECONDS D-Dimer 0.22 (0.0-0.50) mg/L pO2/FiO2 Ratio % VBG pH (7.32-7.42) VBG pCO2 at Pat Temp (42-55) mm/Hg VBG pO2 at Pat Temp (25-40) mm/Hg VBG HCO3 (22-28) meq/L VBG O2 Sat (Monalisa) (95-100) VBG Base Excess (-2.0-2.0) VBG Hemoglobin VBG Carboxyhemoglobin (0.0-6.9) % T HGB POC Potassium (3.5-5.1) Sodium 138 (135-145) mmol/L Potassium 3.9 (3.5-5.1) mmol/L Chloride 100 (98-107) mmol/L Carbon Dioxide 13 L* (22-30) mmol/L Anion Gap 30.0 H (5-15) MEQ/L BUN 20 (9-20) mg/dL Creatinine 1.29 H (0.66-1.25) mg/dL Estimated GFR 61.5 ML/MIN Glucose 191 H (74-106) mg/dL Lactic Acid (0.4-2.0) Calcium 10.3 H (8.4-10.2) mg/dL Magnesium 1.5 L (1.6-2.3) mg/dL Total Bilirubin 0.50 (0.2-1.3) mg/dL AST 35 (17-59) U/L ALT 32 (0-50) U/L Alkaline Phosphatase 43 (38-126) U/L Troponin I (0.000-0.033) ng/mL Serum Total Protein 7.4 (6.3-8.2) g/dL Albumin 5.0 (3.5-5.0) g/dL Urine Color (Yellow) Urine Appearance (Clear) Urine pH (4.6-8.0) Ur Specific [place] (1.005-1.030) Urine Protein (Negative) Urine Glucose (UA) (Negative) mg/dL Urine Ketones (Negative) Urine Blood (Negative) Urine Nitrite (Negative) Urine Bilirubin (Negative) Urine Urobilinogen (0.2) mg/dL Ur Leukocyte Esterase (Negative) U Hyaline Cast (Auto) (0-2) /LPF Urine Microscopic RBC (0-5) /HPF Urine Microscopic WBC (0-5) /HPF Ur Epithelial Cells (None Seen) /HPF Urine Bacteria (None Seen) /HPF Urine Culture Reflexed (NO) 10/01/24 10/01/24 10/01/24 Range/Units 00:12 00:40 00:54 WBC (4.23-9.07) x10^3/uL RBC (4.63-6.08) x10^6/uL Hgb (13.7-17.5) g/dL Hct (40.1-51.0) % MCV (79.0-92.2) fL MCH (25.7-32.2) pg MCHC (32.3-36.5) g/dL RDW (11.6-14.4) % Plt Count (163-337) x10^3/uL MPV (9.4-12.4) fL Segmented Neutrophils (34.0-67.9) % Lymphocytes (Manual) (21.8-53.1) % Monocytes (Manual) (5.3-12.2) % Eosinophils (Manual) (0.8-7.0) % Platelet Estimate (NORMAL) RBC Morphology PT (9.4-12.5) SECONDS INR (0.8-3.0) APTT (25.1-36.5) SECONDS D-Dimer (0.0-0.50) mg/L pO2/FiO2 Ratio % VBG pH (7.32-7.42) VBG pCO2 at Pat Temp (42-55) mm/Hg VBG pO2 at Pat Temp (25-40) mm/Hg VBG HCO3 (22-28) meq/L VBG O2 Sat (Monalisa) (95-100) VBG Base Excess (-2.0-2.0) VBG Hemoglobin VBG Carboxyhemoglobin (0.0-6.9) % T HGB POC Potassium (3.5-5.1) Sodium (135-145) mmol/L Potassium (3.5-5.1) mmol/L Chloride (98-107) mmol/L Carbon Dioxide (22-30) mmol/L Anion Gap (5-15) MEQ/L BUN (9-20) mg/dL Creatinine (0.66-1.25) mg/dL Estimated GFR ML/MIN Glucose (74-106) mg/dL Lactic Acid 11.6 H (0.4-2.0) Calcium (8.4-10.2) mg/dL Magnesium (1.6-2.3) mg/dL Total Bilirubin (0.2-1.3) mg/dL AST (17-59) U/L ALT (0-50) U/L Alkaline Phosphatase (38-126) U/L Troponin I < 0.012 (0.000-0.033) ng/mL Serum Total Protein (6.3-8.2) g/dL Albumin (3.5-5.0) g/dL Urine Color Yellow (Yellow) Urine Appearance Clear (Clear) Urine pH 6.5 (4.6-8.0) Ur Specific [place] <=1.005 (1.005-1.030) Urine Protein Trace A (Negative) Urine Glucose (UA) Negative (Negative) mg/dL Urine Ketones Negative (Negative) Urine Blood Negative (Negative) Urine Nitrite Negative (Negative) Urine Bilirubin Negative (Negative) Urine Urobilinogen 0.2 (0.2) mg/dL Ur Leukocyte Esterase Negative (Negative) U Hyaline Cast (Auto) NONE SEEN (0-2) /LPF Urine Microscopic RBC 0-2 (0-5) /HPF Urine Microscopic WBC 0-2 (0-5) /HPF Ur Epithelial Cells None Seen (None Seen) /HPF Urine Bacteria None Seen (None Seen) /HPF Urine Culture Reflexed YES (NO) 10/01/24 10/01/24 10/01/24 Range/Units 00:54 02:25 02:25 WBC (4.23-9.07) x10^3/uL RBC (4.63-6.08) x10^6/uL Hgb (13.7-17.5) g/dL Hct (40.1-51.0) % MCV (79.0-92.2) fL MCH (25.7-32.2) pg MCHC (32.3-36.5) g/dL RDW (11.6-14.4) % Plt Count (163-337) x10^3/uL MPV (9.4-12.4) fL Segmented Neutrophils (34.0-67.9) % Lymphocytes (Manual) (21.8-53.1) % Monocytes (Manual) (5.3-12.2) % Eosinophils (Manual) (0.8-7.0) % Platelet Estimate (NORMAL) RBC Morphology PT (9.4-12.5) SECONDS INR (0.8-3.0) APTT (25.1-36.5) SECONDS D-Dimer (0.0-0.50) mg/L pO2/FiO2 Ratio 100.0 100.0 % VBG pH 7.19 L* 7.34 (7.32-7.42) VBG pCO2 at Pat Temp 42 40 L (42-55) mm/Hg VBG pO2 at Pat Temp 180 H 53 H (25-40) mm/Hg VBG HCO3 16.0 L* 21.6 L (22-28) meq/L VBG O2 Sat (Monalisa) 99.0 85.2 L (95-100) VBG Base Excess -11.7 L -3.9 L (-2.0-2.0) VBG Hemoglobin 13.5 13.4 VBG Carboxyhemoglobin 3.1 5.5 (0.0-6.9) % T HGB POC Potassium 4.0 4.4 (3.5-5.1) Sodium 137 (135-145) mmol/L Potassium 4.3 (3.5-5.1) mmol/L Chloride 102 (98-107) mmol/L Carbon Dioxide 18 L (22-30) mmol/L Anion Gap 21.9 H (5-15) MEQ/L BUN 22 H (9-20) mg/dL Creatinine 1.12 (0.66-1.25) mg/dL Estimated GFR 72.9 ML/MIN Glucose 139 H (74-106) mg/dL Lactic Acid 5.1 H (0.4-2.0) Calcium 9.4 (8.4-10.2) mg/dL Magnesium (1.6-2.3) mg/dL Total Bilirubin (0.2-1.3) mg/dL AST (17-59) U/L ALT (0-50) U/L Alkaline Phosphatase (38-126) U/L Troponin I (0.000-0.033) ng/mL Serum Total Protein (6.3-8.2) g/dL Albumin (3.5-5.0) g/dL Urine Color (Yellow) Urine Appearance (Clear) Urine pH (4.6-8.0) Ur Specific [place] (1.005-1.030) Urine Protein (Negative) Urine Glucose (UA) (Negative) mg/dL Urine Ketones (Negative) Urine Blood (Negative) Urine Nitrite (Negative) Urine Bilirubin (Negative) Urine Urobilinogen (0.2) mg/dL Ur Leukocyte Esterase (Negative) U Hyaline Cast (Auto) (0-2) /LPF Urine Microscopic RBC (0-5) /HPF Urine Microscopic WBC (0-5) /HPF Ur Epithelial Cells (None Seen) /HPF Urine Bacteria (None Seen) /HPF Urine Culture Reflexed (NO) 10/01/24 Range/Units 02:40 WBC (4.23-9.07) x10^3/uL RBC (4.63-6.08) x10^6/uL Hgb (13.7-17.5) g/dL Hct (40.1-51.0) % MCV (79.0-92.2) fL MCH (25.7-32.2) pg MCHC (32.3-36.5) g/dL RDW (11.6-14.4) % Plt Count (163-337) x10^3/uL MPV (9.4-12.4) fL Segmented Neutrophils (34.0-67.9) % Lymphocytes (Manual) (21.8-53.1) % Monocytes (Manual) (5.3-12.2) % Eosinophils (Manual) (0.8-7.0) % Platelet Estimate (NORMAL) RBC Morphology PT (9.4-12.5) SECONDS INR (0.8-3.0) APTT (25.1-36.5) SECONDS D-Dimer (0.0-0.50) mg/L pO2/FiO2 Ratio % VBG pH (7.32-7.42) VBG pCO2 at Pat Temp (42-55) mm/Hg VBG pO2 at Pat Temp (25-40) mm/Hg VBG HCO3 (22-28) meq/L VBG O2 Sat (Monalisa) (95-100) VBG Base Excess (-2.0-2.0) VBG Hemoglobin VBG Carboxyhemoglobin (0.0-6.9) % T HGB POC Potassium (3.5-5.1) Sodium (135-145) mmol/L Potassium (3.5-5.1) mmol/L Chloride (98-107) mmol/L Carbon Dioxide (22-30) mmol/L Anion Gap (5-15) MEQ/L BUN (9-20) mg/dL Creatinine (0.66-1.25) mg/dL Estimated GFR ML/MIN Glucose (74-106) mg/dL Lactic Acid (0.4-2.0) Calcium (8.4-10.2) mg/dL Magnesium (1.6-2.3) mg/dL Total Bilirubin (0.2-1.3) mg/dL AST (17-59) U/L ALT (0-50) U/L Alkaline Phosphatase (38-126) U/L Troponin I 0.016 (0.000-0.033) ng/mL Serum Total Protein (6.3-8.2) g/dL Albumin (3.5-5.0) g/dL Urine Color (Yellow) Urine Appearance (Clear) Urine pH (4.6-8.0) Ur Specific [place] (1.005-1.030) Urine Protein (Negative) Urine Glucose (UA) (Negative) mg/dL Urine Ketones (Negative) Urine Blood (Negative) Urine Nitrite (Negative) Urine Bilirubin (Negative) Urine Urobilinogen (0.2) mg/dL Ur Leukocyte Esterase (Negative) U Hyaline Cast (Auto) (0-2) /LPF Urine Microscopic RBC (0-5) /HPF Urine Microscopic WBC (0-5) /HPF Ur Epithelial Cells (None Seen) /HPF Urine Bacteria (None Seen) /HPF Urine Culture Reflexed (NO) Accuchecks Date 10/01/24 Time 00:58 - Radiology Orders Radiology Orders: Radiology Procedures Category Date Time Status CT ANGIOGRAPHY NECK [CT] Stat Exams 10/01/24 02:06 Completed CTA HEAD W AND/OR WO CONTRAST [CT] Stat Exams 10/01/24 02:06 Completed HEAD WITHOUT CONTRAST [CT] Stat Exams 10/01/24 00:15 Completed Impressions & Recommendations - ED Arrival Time ED Arrival Date & Time: ED Arrival Date and Time 10/01/24 00:11 Last known well time: - NIHSS IV Thrombolysis Standard of Care: IV thrombolysis as a standard of care in acute stroke discussed with ROSEMARY BARTHOLOMEW MD. Risk, benefits, and options of IV thrombolytic therapy for acute ischemic stroke were discussed with the patient/family KRISTIAN REINOSO. We discussed that use of IV tenecteplase is in line with national stroke guidelines. We discussed that risks of IV thrombolytic use include intracranial hemorrhage, other fatal bleeding risks, and angioedema. Alternatives of treatment, including not proceeding with thrombolytic therapy were discussed. - Recommendations Recommendations: -Neuro checks, NIHSS, vital signs monitoring as per post tenecteplase protocol -Repeat non contrast head CT or noncontrast MRI brain 24 hours after IV thrombolyltic administration. -Obtain STAT non contrast head CT if there are new neurological deficits, worsening of current deficits, or with complaint of severe headache. Notify Neurology SOLITARIO of changes in neurological exam. -Nicardipine gtt as needed to maintain BP< 180/105 x 24hr post tenecteplase administration. -Monitor for angioedema -SCD's for DVT prophylaxis. Work up: -Basic labs (CBC, BMP, TSH+T4) if not done already. -INR,PTT if not done already -Fasting Lipid Panel and Hgb A1c -Transthroacic echocardiogram [with bubble study] -EKG + Telemetry- monitor for A-FIB Secondary Stroke Prevention -Hold off on antiplatelet therapy x 24 hr post IV thrombolytic therapy Decision to initiate antiplatelet therapy, or anticoagulation if needed, will be based on repeat imaging at 24 hour post thrombolytic administration. -If not medical contraindication, start high intensity statin. Eg. Atrovastatin 80 mg daily Risk Factor Management -HTN control: BP <180/105 for first 24 hr post tenecteplase -If diabetic, optimize glucose control: penitentiary goal HgA1c <7 -HLD control: Long-term goal LDL <70. High intensity statin recommended. Moderate intensity statin in patients > 75 years. -Smoking Alcohol Use Drug use cessation counseling Stroke Rehabilitation: -Physical therapy, occupational therapy, speech therapy consults -Social work and case management consults for help with discharge needs. Impression and recommendation were discussed with Dr. ROSEMARY BARTHOLOMEW MD Thank you for allowing us to participate in this patient's care. Please call [facility] with questions, concerns, or change in patient's neurological status. This consult was performed via secure telemedicine audio/visual platform with [ ] RN assisting at bedside. Patient identity verified and consent obtained. TIQ recieved at [ ] Neuro Cart Time: Delays in Patient Encounter: Assessment & Plan - Encounter Encounter: "The entirety of this encounter was performed via Telemedicine using audio and visual "
[2024-10-01] MEDS ORDERED: Keppra 500 MG/5 ML ONE ×2 (05:42→05:45)
[2024-10-01] MEDS ORDERED: D5w 100ML Mini Bag 100 ML 100 ML IV ONE (05:43)
[2024-10-01] MEDS: Keppra 500 MG/5 ML*** 2,000 MG in D5w 100ML Mini Bag 100 ML 100 ML IV ONE (06:00)
[2024-10-01 06:02] VITALS: PULSE 79; RESP 24
[2024-10-01 06:16] VITALS: BP 143/71; O2SAT 89
== END 2024-10-01 06:54 | disposition home or self-care (01) ==
LOC: ED 00:11
DX: R56.9 Unspecified convulsions (principal); I10 Essential (primary) hypertension; E11.9 Type 2 diabetes mellitus without complications; Z79.899 Other long term (current) drug therapy
CPT/HCPCS: 36415; 51702; 70450; 70496; 70498; 80048; 80053; 81001; 82805; 83605; 83735; 84484; 85025; 85379; 85610; 85730; 87086; 93005; 96360; 96361; 96365; 99285; Q3014; 96374; J1953